=== PATIENT | female | born 1995 | race African-American/Black ===

== ENCOUNTER 2018-12-04 08:15 | Inpatient (IN) | payer BC ==
[2018-12-04] VITALS (11 sets, daily range): BP systolic 107–130; BP diastolic 51–78; PULSE 53–73; TEMP 97.9–98.4
[~2018-12-04] VITALS: Ht 154.9 cm; Wt 61.4 kg
[2018-12-04 08:26] LABS: BASO % 0.4 % (0.0-2.0); EOS # 0.1 (0.0-0.7); EOS % 1.4 % (0-4.0); GRAN # 3.8 (1.4-6.5); GRAN % 51.9 % (42.2-75.2); HEMOGLOBIN 11.6 g/dl (12.5-16.0); LYMPH # 2.6 (1.2-3.4); LYMPH % 35.1 % (20.0-51.0); MEAN CELL VOLUME 91 fl (80.0-100.0); MEAN CORPUSCULAR HEMOGLOBIN 30 pg (27.0-31.0); MEAN CORPUSCULAR HGB CONC 33 g/dl (33.0-37.0); MEAN PLATELET VOLUME 10.5 fl (7.4-10.4); MONO # 0.8 (0.1-0.6); MONO % 11.1 % (1.7-9.3); PLATELET COUNT 230 K/mm3 (130-400); RED BLOOD COUNT 3.91 M/mm3 (4.10-5.30); REDCELL DISTRIBUTION WIDTH-CV 13.2 % (11.5-14.5)
--- NOTE | 2018-12-04 08:34 | NUR ---
0800 PATIENT TO [facility] WITH C/O CONTRACTIONS. SHE REPORTS THAT SHE HAS BEEN SEEN IN [place] FOR CARE, THAT THIS IS HER 3RD AND HER DUE DATE IS 12/12/18. SHE STATES THAT HER FIRST CHILD WAS BORN VIA C/S AND HER 2ND WAS A . SHE REPORTS CONTRACTIONS BEGINNING AT 0700 THIS MORNING, NO LEAKING OF FLUID OR VAGINAL BLEEDING. SHE IS UNCOMFORTABLE, TENSE AND BREATHING THROUGH CONTRACTIONS. PATIENT CHANGED INTO GOWN. EFMS EXPLAINED AND APPLIED. VS OBTAINED. SVE COMPLETE/+2. 0807 DR. BROOKS CALLED FOR DELIVERY AND ON HIS WAY TO THE HOSPITAL. PATIENT ENCOURAGED TO BREATH THROUGH CONTRACTIONS. 0810 IV STARTED IN RIGHT HAND. 0815 LR INFUSING PER ORDERS AND PEN G STARTED PER GBS+ PROTOCOL. 0820 DR. BROOKS TO ROOM. PATIENT PREPPED FOR DELIVERY. 0825 PATIENT BEGINS TO PUSH WITH CONTRACTIONS. AROM BY DR. BROOKS. CLEAR FLUID NOTED. PATIENT CONTINUES TO PUSH WITH CONTRACTIONS. 0834 SPONTANEOUS VAGINAL DELIVERY OF VIABLE MALE BY DR. BROOKS. CORD CLAMPED AND CUT AND INFANT TO THE CARE OF THE NURSERY RN. 0838 SPONTANEOUS DELIVERY OF PLACENTA BY DR. BROOKS. PITOCIN STARTED AT 333ML/HR PER ORDERS AND PROTOCOL. FUNDUS FIRM WITH MASSAGE, LOCHIA WNL. PERINEUM INTACT.
[2018-12-04 08:35] LABS: HEMATOCRIT 35.7 % (37.0-47.0)
[2018-12-04 11:23] LABS: TRICYCLIC ANTIDEPRESS URINE NEGATIVE
[2018-12-04 13:36] LABS: COLLECTION METHOD CLEAN CATCH
[2018-12-04 13:58] LABS: MUCOUS Present /lpf; PH 6 (5-8); SQUAMOUS EPITHELIAL None Seen /hpf; URINE APPEARANCE Clear; URINE BACTERIA None Seen /hpf; URINE BILIRUBIN Negative (NEGATIVE); URINE BLOOD 3+ (NEGATIVE); URINE COLOR Yellow; URINE GLUCOSE Negative (NEGATIVE); URINE KETONE Negative (NEGATIVE); URINE LEUKOCYTE ESTERASE Negative (NEGATIVE); URINE NITRATE Negative (NEGATIVE); URINE PROTEIN(semi-quant) Negative (NEGATIVE); URINE RBC >50 /hpf; URINE UROBILINOGEN Negative (NEGATIVE); URINE WBC 0-2 /hpf
[2018-12-04 14:04] LABS: HIV 1/2 Antibodies Non-Reactive; HIV-1p24 Antigen Non-Reactive
[2018-12-05 03:50] VITALS: BP 101/57; PULSE 56; TEMP 97.9
--- NOTE | 2018-12-05 06:25 | NUR ---
Pt sleeping. Report received from off going RN. Care taken over by this RN.
[2018-12-05 08:23] VITALS: BP 109/66; PULSE 66; TEMP 98.3
--- NOTE | 2018-12-05 11:47 | NUR ---
Initial visit; Patient thanked Filler Mixer for offering congratulations and God's blessings for the of her son. Filler Mixer thanked patient for choosing [facility].
[2018-12-05 15:53] LABS: HEPATITIS B SURFACE ANTIGEN Negative (Negative)
[2018-12-05 16:34] VITALS: BP 106/67; PULSE 56; TEMP 98.5
[2018-12-05 21:26] VITALS: BP 108/51; PULSE 61; TEMP 97.7
[2018-12-06 03:22] LABS: RPR (VDRL) XXX
[2018-12-06 07:25] VITALS: BP 125/66; PULSE 53; TEMP 98.8
[2018-12-06] MEDS ORDERED: IBU600 MG PO (09:06)
--- NOTE | 2018-12-06 16:10 | NUR ---
RETAIL GREETER student responded to a sr. social media & mobile manager referral for the patient. The patient inquired about community resources. DOM provided a [facility] Resource Guide and reviewed services with the patient. The patient has two other children ages 2 and 11 months. The patient reports she has support from her parents and patient's mom will stay with the patient to help. The patient reports the father is not involved and will not help support her or the kids and lives in [place]. The patient has a car seat. DOM provided a taxi voucher to the patient due to not having room for three car seats in the vehicle. DOM collaborated the above information with the patient's nurse and gave instruction on the taxi voucher.
== END 2018-12-06 11:30 | disposition home or self-care (01) | DRG 807 ==
LOC: LDRO 08:15 → OB 08:17 → LDR 08:17 → OB 10:45
PROVIDERS: ADMIT Obstetrics & Gynecology
PROC: 10E0XZZ Delivery of Products of Conception, External Approach (ICD-10-PCS; principal; 2018-12-04)
DX: O34.211 Maternal care for low transverse scar from previous cesarean delivery (principal); Z37.0 Single live birth; O69.1XX0 Labor and delivery complicated by cord around neck, with compression, not applicable or unspecified; Z3A.38 38 weeks gestation of pregnancy
CPT/HCPCS: J2540; J2590; J7120